=== PATIENT | male | born 1960 | race Caucasian/White ===

== ENCOUNTER → 2024-03-22 14:34 | Outpatient (REF) | payer MEDICARE, OTHER, SELFPAY | LOC: HWRAD 14:34 | PROVIDERS: ATTENDING PHYSICIAN Surgery; FAMILY PHYSICIAN Family Medicine | DX: K40.91 Unilateral inguinal hernia, without obstruction or gangrene, recurrent (principal) | CPT/HCPCS: 74177; Q9967 ==

== ENCOUNTER → 2024-04-16 09:22 | Outpatient (REF) | payer MEDICARE, OTHER, SELFPAY | LOC: SDSPAT 09:22 | PROVIDERS: ATTENDING PHYSICIAN Surgery; FAMILY PHYSICIAN Family Medicine | DX: K40.91 Unilateral inguinal hernia, without obstruction or gangrene, recurrent (principal) | CPT/HCPCS: 36415; 93005 ==

== ENCOUNTER 2024-04-29 06:13 | Day surgery (SDC) | payer MEDICARE, OTHER, SELFPAY ==
[2024-04-16 09:32] VITALS: BMI 29.7
[2024-04-29] VITALS (8 sets, daily range): BP systolic 114–145; BP diastolic 80–104; BMI 29.7
[2024-04-29] MEDS: NORMOSOL-R 1000 IV (06:30)
[2024-04-29] MEDS: TYLENOL 1000 MG PO (06:36)
--- NOTE | 2024-04-29 08:37 | OR.RPT ---
Operative Report
Operative Report
Primary Surgeon: Norman
Assisting: Malcolm GARVEY
Pre-op Diagnosis: Recurrent left inguinal hernia
Post-op Diagnosis: Same
Procedure Performed: Robot assisted laparoscopic repair of recurrent left inguinal hernia
Anesthesia Type: GETA
Specimen / Cultures: None
Estimated Blood Loss: 4cc
Complications: None immediate
Operative Findings: Shallow direct defect, pseudosac not everted; XL MID 3D max
Date of surgery: 04/29/24
Indications:� This 63M developed symptomatic recurrent left inguinal hernia. Robot assisted laparoscopic repair was planned.
Description of procedure:� The patient was taken to the operating room and positioned into supine position. The patient�s abdomen was prepped and draped in standard sterile fashion. A time-out was completed verifying correct patient, procedure,
site, positioning, and implants and special equipment prior to beginning this procedure.� The hernia was manually reduced after induction. A stab incision was made in the left upper quadrant, a Veress needle was inserted and proper position was
confirmed by aspiration and saline drop test. Following this, pneumoperitoneum was created with insufflation of carbon dioxide to 12 mmHg. Then a 8mm robotic trocar was inserted above and to the left of the umbilicus. A laparoscope was inserted and
the area of initial trocar entry and Veress needle placement were both inspected and no injuries were found. Two 8mm trocars were then placed lateral to the rectus sheath under direct visualization.
Both inguinal regions were inspected and the median umbilical ligament, medial umbilical ligament, and lateral umbilical fold were identified. Attention was turned to the left groin. The peritoneum was incised transversely above the defect and a
flap was developed in the caudad direction. Yobany�s ligament was identified ultimately dissected to its junction with the iliac vein and the space of Retzius was developed bluntly.� The dissection was continued inferiorly to the iliopubic tract,
with care taken to avoid injury to the femoral branch of the genitofemoral nerve and the lateral femoral cutaneous nerve. The cord structures were parietalized.
The direct space was inspected and a hernia was identified and reduced by gentle traction. The defect was shallow and the pseudosac was not everted. The femoral space was inspected no defect was identified.� The indirect space was inspected and a
hernia was not identified. The canal was inspected and a small cord lipoma was identified and reduced.
Extra large left MID 3D max mesh was passed through a trocar. The mesh was placed into the preperitoneal space and moved into position to lay flat and completely cover the direct, indirect, and femoral spaces with overlap beyond the midline. The
mesh was secured into place using 2-0 vicryl suture to Yobany�s ligament medially and laterally. Care was taken to avoid the inferolateral triangles containing the iliac vessels and genital nerves. The peritoneal flap was closed over the mesh and
secured with 2-0 monocryl stratafix suture in similar positions of safety. A 14g angiocath was used to decompress the preperitoneal space revealing good seal and all mesh in good position without folding or curling.
After ensuring adequate hemostasis, the trocars were removed and the pneumoperitoneum allowed to escape. The trocar incisions were closed at the skin level using 4-0 monocryl and topical skin adhesive. All counts were correct and the patient
tolerated the procedure well and was taken to the postanesthesia care unit in stable condition.
The assistance of Malcolm GARVEY was required due to the complexity of the procedure. During the procedure he assisted with retraction, resection, and closure of the wound.
[2024-04-29] MEDS: SUBLIMAZE 25 MCG IV (09:00)
== END 2024-04-29 10:22 | disposition home or self-care (01) ==
LOC: SDS 06:13
PROVIDERS: ATTENDING PHYSICIAN Surgery
DX: K40.91 Unilateral inguinal hernia, without obstruction or gangrene, recurrent (principal)
CPT/HCPCS: 49651; C1781

== ENCOUNTER → 2024-11-02 08:52 | Outpatient (REF) | payer MEDICARE, OTHER, SELFPAY | LOC: RCS 08:52 | PROVIDERS: ATTENDING PHYSICIAN Nuclear Medicine Nuclear Cardiology; FAMILY PHYSICIAN Family Medicine | DX: R07.89 Other chest pain (principal) | CPT/HCPCS: 93306 ==

== ENCOUNTER → 2024-11-06 09:43 | Outpatient (REF) | payer MEDICARE, OTHER, SELFPAY | LOC: RCS 09:43 | PROVIDERS: ATTENDING PHYSICIAN Nuclear Medicine Nuclear Cardiology; FAMILY PHYSICIAN Family Medicine | DX: R07.89 Other chest pain (principal) | CPT/HCPCS: 93017; 93350 ==